=== PATIENT | female | born 1950 | race African-American/Black ===

== ENCOUNTER 2017-11-10 12:30 | Outpatient (RCR) | payer OTHER | END 2017-11-24 | disposition home or self-care (01) | LOC: PTY 12:30 | DX: M17.11 Unilateral primary osteoarthritis, right knee (principal) | CPT/HCPCS: 97110; 97140; 97161; G0283 ==

== ENCOUNTER 2017-11-26 13:00 | Outpatient (RCR) | payer OTHER | END 2017-12-25 | disposition home or self-care (01) | LOC: PTY 13:00 | DX: M17.11 Unilateral primary osteoarthritis, right knee (principal) | CPT/HCPCS: 97110; 97140; G0283 ==

== ENCOUNTER 2018-01-04 13:00 | Outpatient (RCR) | payer OTHER | END 2018-01-24 | disposition home or self-care (01) | LOC: PTY 13:00 | DX: M17.11 Unilateral primary osteoarthritis, right knee (principal) | CPT/HCPCS: 97032; 97110; 97140; G0283 ==

== ENCOUNTER 2018-01-28 13:00 | Outpatient (RCR) | payer OTHER | END 2018-02-24 | disposition home or self-care (01) | LOC: PTY 13:00 | DX: M17.11 Unilateral primary osteoarthritis, right knee (principal) | CPT/HCPCS: 97110; 97140; G0283 ==